=== PATIENT | female | born 1995 | race Caucasian/White ===

== ENCOUNTER 2016-05-28 11:39 | Observation (INO) | payer OTHER ==
[2016-05-28] VITALS (7 sets, daily range): BP systolic 120–136; BP diastolic 75–89
[~2016-05-28] VITALS: Ht 160 cm; Wt 116.9 kg
[~2016-05-28 11:39] MED LIST: PERCOCET1 TA1 PO; VICODIN EQUIVAL1 TAB PO
--- NOTE | 2016-05-28 14:14 | DIAGNOSTIC IMAGING REPORT ---
PROCEDURE: ABDOMEN/PELVIS WITH CONTRAST CLINICAL INDICATION: ABDOMINAL PAIN TECHNIQUE: 125 ml of Isovue 300 were injected intravenously and axial images were obtained of the abdomen and pelvis with sagittal and coronal reformations. COMPARISON: 03/15/2015 FINDINGS: ABDOMEN: Hepatomegaly and hepatic steatosis and mild splenomegaly measuring 13.9 cm in AP diameter. Clear lung bases. Normal sized heart. No hiatal hernia. The gallbladder, adrenal glands, kidneys, and pancreas are normal. The abdominal aorta is normal in its course and caliber. No atherosclerosis. There are no suspicious calcifications, retroperitoneal adenopathy or masses. The stomach, upper bowel loops, and mesentery are normal. Nonenlarged lymph nodes throughout the mesentery. Intact anterior abdominal wall. PELVIS: Enlarged and hyperemic appendix directed medially from the cecum measuring about 11 mm in thickness with moderate periappendiceal inflammation. Mild diffuse inflammation along the anterior peritoneum in the pelvis. No free pelvic fluid or focal fluid collections. The right ovary contains a dominant follicle. Interval resolution of inflammation along the anterior abdominal wall seen previously. The pelvic small bowel loops are normal. Normal amount of stool in the colon and rectum. The uterus, urinary bladder, and pelvic vessels are normal. No adenopathy, or pelvic mass. Intact osseous structures. IMPRESSION: 1. Findings consistent with acute, uncomplicated appendicitis. 2. Hepatosplenomegaly and hepatic steatosis, chronic. 3. Findings called to the emergency room. All CT scans at this facility use dose modulation, iterative reconstruction, and/or weight-based dosing when appropriate to reduce radiation dose to as low as reasonably achievable.
--- NOTE | 2016-05-28 14:22 | ED CLINICAL REPORT ---
Clinical Report - Physicians/Mid Levels [facility] [address] [place] [address] 05/28/2016 11:39 Patient: ROXANNE CANADA Time Seen: 11:46; initial patient contact. Arrived- By private vehicle. Historian- patient. HISTORY OF PRESENT ILLNESS Chief Complaint: ABDOMINAL PAIN. At its maximum, severity described as moderate. When seen in the E.D., severity described as moderate. Modifying factors- worsened by deep breaths. Not relieved by anything. It is described as stabbing. No radiation. It is described as located in the right lower quadrant. This started last night and is still present. It was gradual in onset and has been constant. The patient has had nausea, loss of appetite, vomiting and diarrhea. Similar symptoms previously: None. Recent medical care: Not recently seen/assessed. REVIEW OF SYSTEMS No constipation, difficulty with urination or fever. Last bowel movement: today. She has had chills. All systems otherwise negative, except as recorded above. PAST HISTORY Medications: None. Allergies: No Known Drug Allergy. SOCIAL HISTORY Current every day smoker. No alcohol use or drug use. ADDITIONAL NOTES The nursing notes have been reviewed with agreement regarding the chief complaint, PMH and patient medications and allergies. PHYSICAL EXAM Vital Signs: 05/28/2016 11:45 BP: 130/76. HR: 124. RR: 18. O2 saturation: 97%. Temp: 98.2 F. Pain level now: 8/10. Have been reviewed. Blood pressure normal. Tachycardic. Respiratory rate normal. Temperature normal. Oxygen saturation normal. Appearance: Alert. Oriented X3. Appears to be in pain. Eyes: Eyes normal inspection. ENT: Dry mucous membranes present. CVS: Tachycardia. Heart sounds normal. Rhythm normal. Respiratory: No respiratory distress. Breath sounds normal. Abdomen: Soft. Moderate tenderness in the right lower quadrant with guarding present. Positive obturator and psoas sign (+ Rovsing's sign). Bowel sounds normal. No organomegaly. No mass. Back: Normal inspection. No CVA tenderness. Skin: Normal skin color. Extremities: No lower extremity edema. Neuro: Oriented X 3. LABS, X-RAYS, AND EKG Abdominal CT: Acute appendicitis. Study type: abdomen and pelvis. Abdominal CT performed with IV contrast. The study was independently viewed by me, interpreted by the radiologist and discussed with the radiologist. Prior studies were not available for comparison. Interpretation time: 14:22. Laboratory Tests: UA-Culture if indicated: (JAYMIE: 05/28/2016 11:57) [facility] 12[facility]20) Final results Test Result Flag Units (Reference) URINE COLOR YELLOW URINE APPEARANCE SL CLOUDY URINE GLUCOSE NEGATIVE (NEGATIVE) URINE BILIRUBIN NEGATIVE (NEGATIVE) URINE KETONE NEGATIVE (NEGATIVE) URINE SPECIFIC GRAVITY 1.025 (1.010-1.030) URINE PH 6.0 (5.0-8.0) URINE PROTEIN NEGATIVE (NEGATIVE) URINE UROBILINOGEN 0.2 EU/dL (0.2-1.0) URINE NITRITE NEGATIVE (NEGATIVE) URINE BLOOD NEGATIVE (NEGATIVE) URINE LEUK ESTERASE NEGATIVE (NEGATIVE) URINE RBC NONE SEEN rbc/hpf (0-1) URINE WBC 0-1 wbc/hpf (0-1) URINE EPITHELIAL CELLS >15 EPI/hpf (0-5) URINE BACTERIA MODERATE (2+ TO 3+) (NONE SEEN) URINE COMMENT CULTURE INDICATED SPECIMEN UNSUITABLE FOR CULTURE DUE TO EPITHELIALCONTAMINATION.PLEASE SUBMIT CLEAN CATCH OR CATH SPECIMENIF CULTURE WANTED.URINE CULTURES ARE SET-UP BASED ON THE FOLLOWING CRITERIA:POSITIVE NITRITEPOSITIVE LEUKOCYTE ESTERASEGREATER THAN 10 WHITE BLOOD CELLSMODERATE (2+) OR GREATER BACTERIA Urine: (JAYMIE: 05/28/2016 11:57) ( [facility] 13:00) Final results Test Result Flag Units (Reference) URINE NEGATIVE CBC w Diff: (JAYMIE: 05/28/2016 12:38) ( [facility]28[facility]2016 12:58) Final results Test Result Flag Units (Reference) WHITE BLOOD COUNT 19.6 H K/uL (4.5-11.5) RED BLOOD COUNT 4.69 M/uL (4.00-5.20) HEMOGLOBIN 13.0 gm/dL (12.0-16.0) HEMATOCRIT 38.7 % (36.0-46.0) MEAN CELL VOLUME 83 fL (80-100) MEAN CORPUSCULAR HGB 28 pg (26-34) MEAN CORPUSCULAR HGB CONC 34 g/dL (31-37) RED CELL DISTRIBUTION WIDTH 13.4 % (11.6-14.8) PLATELET COUNT 287 K/uL (150-400) NEUTROPHIL % 88.5 H % (50-75) LYMPH % 9.0 L % (25-40) MONO % 2.0 L % (3-14) EOSINOPHIL % 0.4 % (0-4) BASOPHIL % 0.1 % (0-2) CMP: (JAYMIE: 05/28/2016 12:38) ( MsgRcvd 05/28/2016 13:10) Final results Test Result Flag Units (Reference) GLUCOSE 94 mg/dL (70-110) BUN 6 L mg/dL (7-18) CREATININE 0.7 mg/dL (0.6-1.3) Estimated GFR >60 mL/min Estimated GFR- >60 mL/min Note: Persistent reduction over 3 months in eGFR<60 mL/min/1.73 m2 defines CKD. Patients with eGFR values>=60 mL/min/1.73 m2 may also have CKD if evidence ofpersistent proteinuria. Additional information may be foundat [email or web address]. SODIUM 138 mmol/L (136-145) POTASSIUM 3.8 mmol/L (3.5-5.1) CHLORIDE 102 mmol/L (98-107) CARBON DIOXIDE 24 mmol/L (21-32) CALCIUM 8.7 mg/dL (8.5-10.1) TOTAL PROTEIN 7.9 g/dL (6.4-8.2) ALBUMIN 3.5 g/dL (3.3-5.0) BILIRUBIN, TOTAL 0.5 mg/dL (0.0-1.0) ALKALINE PHOSPHATASE 64 U/L (46-116) AST (SGOT) 23 U/L (15-37) ALT (SGPT) 37 U/L (12-78) LIPASE 77 U/L (73-393) AMYLASE 34 U/L (25-115) . PROGRESS AND PROCEDURES Discussed case with on-call health care provider, (call returned 14:20 Dr. Jimenez, due to insurance will have to admit to medicine and he will consult and take to surgery. Will start appy orders, but use Zosyn for Abx.). Reviewed test results and need for additional work-up. Discussed case with patient's primary care provider, (call returned 14:21 Dr. Bragg. Will admit and consult surgery.). Reviewed test results and need for additional work-up. Agreed upon treatment plan and decision to place in observation. Health care provider will see patient in hospital. Disposition: Observation in Acute Care. Condition: stable. CLINICAL IMPRESSION Acute appendicitis. No perforation. INSTRUCTIONS Follow-up: Screening today revealed the patient's blood pressure to be in the pre-hypertensive range. The patient should follow up with a primary care provider for blood pressure management. (Electronically signed by Estuardo Ibrahim Dr. 05/28/2016 14:23)
--- NOTE | 2016-05-28 14:22 | ED NURSING NOTES ---
Clinical Report - [facility] [address] [place] [address] 05/28/2016 11:39 [id number] Triage time 11:45. Chief Complaint: ABDOMINAL PAIN. 11:53 05/28/16. Alert. SEPSIS SCREEN: Sepsis Screen. Negative (no infection suspected/documented). MADELINE COMA SCORE: Madeline Coma Scale: 15- eyes open spontaneously (4); best verbal response- oriented x 4 (5); best motor response- obeys commands (6). --11:53 Macey Siddiqui R.N. 11:45 05/28/16. BP: 130/76. HR: 124. RR: 18. O2 saturation: 97%. Temp: 98.2 F. Pain level now: 10/16. --11:53 Macey Siddiqui R.N. 11:55 05/28/16. --11:55 Macey Siddiqui R.N. Weight: 113.3 kg stated. Height/Length: 63 inches Per Patient. BMI: 44.3. --11:50 Macey Siddiqui R.N. Medications None. --11:48 Macey Siddiqui R.N. Allergies No Known Drug Allergy. --11:48 Macey Siddiqui R.N. History Arrived by private vehicle. Historian: patient. Accompanied by friend. This started last night. ( pt states pain is on her right side and lower abdomen.). She has had diarrhea. ( chills). No nausea, vomiting or constipation. 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 PAST MEDICAL HX: Immunizations: up-to-date. Last normal menstrual period- Apr. Denies current . SOCIAL HX: Light tobacco smoker- less than 1/2 a pack per day. No alcohol use or drug use. FALL RISK ASSESSMENT: Fall risk assessment completed. No fall risk identified. NUTRITIONAL RISK ASSESSMENT: The nutritional risk assessment revealed no deficiencies. FUNCTIONAL ASSESSMENT: Functional assessment: no impairments noted. LEARNING NEEDS ASSESSMENT: The learning needs assessment revealed no barriers. SKIN INTEGRITY ASSESSMENT: Skin integrity risk assessment completed. No skin integrity risk identified. --11:53 Macey Siddiqui R.N. ( pt states "it stings when I wipe"). --11:55 Macey Siddiqui R.N. Interventions ID band on patient. To treatment room. --11:53 Macey Siddiqui R.N. PHYSICAL ASSESSMENT 11:55 05/28/16. GENERAL / NEURO / PSYCH: Alert. Oriented X 4. Appears in pain. RESPIRATORY: Respirations not labored. CVS: Capillary refill less than 2 seconds. GI / : Abdomen soft. Abdominal tenderness in the right upper quadrant, right lower quadrant and left lower quadrant. Bowel sounds within normal limits. SKIN: Skin is warm and dry. --11:55 Macey Siddiqui R.N. NURSING PROGRESS NOTES <<STRICKEN ENTRY-- 12:44 05/28/2016 Site #1 started via IV in the left hand with an 22g angiocath; four attempts. Blood drawn: rainbow set. Labeled in the presence of the patient and sent to the lab. Saline lock flushed with saline (2 attempts by anna RN, 3 attempts by CARLOS A Hillman). --12:44 Macey Siddiqui R.N. --END STRIKE>> Correction. --12:55 Macey Siddiqui R.N. 12:44 05/28/2016 Started bag #1 1000 mL IV Fluids IV NS (Saline); bolus of 1000 mL wide open via site #1. Allergies verified and confirmed 5 rights. IV patency established. IV site checked: no pain, redness, or swelling. IV flushed thoroughly pre- and post-medication administration. --12:44 Macey Siddiqui R.N. 12:44 05/28/2016 Site #1 started via IV in the left hand with an 22g angiocath; three attempts. Blood drawn: rainbow set. Labeled in the presence of the patient and sent to the lab. Saline lock flushed with saline (2 attempts by anna RN, 1 attempts by CARLOS A Hillman). --12:55 Macey Siddiqui R.N. 12:45 05/28/2016 Zofran (Ondansetron HCl) IVP 4 mg given over 2 minute(s) via site #1. Allergies verified and confirmed 5 rights. IV patency established. IV site checked: no pain, redness, or swelling. IV flushed thoroughly pre- and post-medication administration. IVP given by RN. --12:48 Macey Siddiqui R.N. 12:49 05/28/2016 Morphine IVP 4 mg given over 2 minute(s) via site #1. Allergies verified, confirmed 5 rights and sedative warning given to the patient. IV patency established. IV site checked: no pain, redness, or swelling. IV flushed thoroughly pre- and post-medication administration. IVP given by RN. --12:49 Macey Siddiqui R.N. 12:55 05/28/16. --12:55 Macey Siddiqui R.N. 12:55 05/28/16. Patient informed about reason for wait and about plan of care. --12:55 Macey Siddiqui R.N. 13:44 05/28/16. Patient transported to [place] by stretcher with tech. --13:44 Macey Siddiqui R.N. 14:05 05/28/16. --14:05 Rafy Mcallister R.N. 14:05 05/28/16. BP: 122/74. HR: 116. RR: 18. O2 saturation: 99% on room air. --14:05 Rafy Mcallister R.N. Patient returned from CT by stretcher with tech. (1400). --14:05 Rafy Mcallister R.N. 15:33 05/28/16. BP: 119/73. HR: 118. RR: 16. O2 saturation: 97%. Temp: 98.5 F. Pain level now: 09/15. --15:33 Macey Siddiqui R.N. <<YAELKEN ENTRY-- 13:00 05/28/2016 IV Fluids IV NS Discontinued: bag #1 completed. Total amount infused: 1000 mL. IV patency established. IV site checked: no pain, redness, or swelling. IV flushed thoroughly. --16:23 Macey Siddiqui R.N. --END STRIKE>> Correction. --16:23 Macey Siddiqui R.N. 13:45 05/28/2016 IV Fluids IV NS Discontinued: bag #1 completed. Total amount infused: 1000 mL. IV patency established. IV site checked: no pain, redness, or swelling. IV flushed thoroughly. --16:23 Macey Siddiqui R.N. 14:05 05/28/16. Pulse oximeter and NIBP monitor placed on patient; monitor alarms on. Reassurance given. --14:05 Rafy Mcallister R.N. 14:40 05/28/16. ( Patient given oral swab for dry mouth. Patient verbalized understanding that she is not to drink water.). --14:40 Macey Siddiqui R.N. 14:42 05/28/2016 Morphine IVP 4 mg given over 2 minute(s) via site #1. 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 IV patency established. IV site checked: no pain, redness, or swelling. IV flushed thoroughly pre- and post-medication administration. IVP given by RN. --14:42 Macey Siddiqui R.N. 14:45 05/28/2016 Started bag #1 1000 mL IV Fluids IV LACTATED RINGERS; at 125 mL/hr over 7 hour(s) via site #1. Allergies verified and confirmed 5 rights. IV patency established. IV site checked: no pain, redness, or swelling. IV flushed thoroughly pre- and post-medication administration. Completed per protocol. --14:45 Macey Siddiqui R.N. 15:00 05/28/2016 Started 3.375 gm of Zosyn (Piperacillin Sod-Tazobactam So) IVPB in bag #1 50 mL; at 50 mL/hr over 30 minute(s) via site #1; Allergies verified and confirmed 5 rights. IV patency established. IV site checked: no pain, redness, or swelling. IV flushed thoroughly pre- and post-medication administration. Completed per protocol. --16:26 Macey Siddiqui R.N. 15:01 05/28/2016 Zosyn IVPB Discontinued: STOPPED. Total amount infused: 0 mL. IV patency established. IV site checked: no pain, redness, or swelling. IV flushed thoroughly. (this is a double entry. Zosyn given ONLY at 15:11.). --16:28 Macey Siddiqui R.N. 15:11 05/28/2016 Started 3.375 gm of Zosyn (Piperacillin Sod-Tazobactam So) IVPB in bag #1 50 mL; at 100 mL/hr over 30 minute(s) via site #1; Allergies verified and confirmed 5 rights. IV patency established. IV site checked: no pain, redness, or swelling. IV flushed thoroughly pre- and post-medication administration. Completed per protocol. --15:11 Macey Siddiqui R.N. 15:31 05/28/2016 Zosyn IVPB Discontinued: bag #1 infused upon admission. Total amount infused: 50 mL. IV patency established. IV site checked: no pain, redness, or swelling. IV flushed thoroughly. --16:29 Macey Siddiqui R.N. 15:33 05/28/16. Patient informed about reason for wait and about plan of care. --15:33 Macey Siddiqui R.N. 16:09 05/28/2016 IV Fluids IV LACTATED RINGERS Discontinued: bag #1 STOPPED upon admission. Total amount infused: 150 mL. IV patency established. IV site checked: no pain, redness, or swelling. IV flushed thoroughly. --16:24 Macey Siddiqui R.N. DISPOSITION / DISCHARGE 16:19 05/28/16. Admitted via Surgery (16:15). Transported via stretcher by [employer]. Patient's personal items include: shirt and coat; items were given to the computed tomography scanner operator and transported with the patient. --16:19 Macey Siddiqui R.N. 15:33 05/28/16. BP: 119/73. HR: 118. RR: 16. O2 saturation: 97%. Temp: 98.5 F. Pain level now: 09/15. --16:19 Macey Siddiqui R.N. Locked/Released at 05/28/2016 17:08 by Macey Siddiqui R.N.
--- NOTE | 2016-05-28 14:22 | ED NURSING NOTES ---
Clinical Report - Nurses [facility] [address] [place] [address] 05/28/2016 11:39 [id number] Triage time 11:45. Chief Complaint: ABDOMINAL PAIN. 11:53 05/28/16. Alert. SEPSIS SCREEN: Sepsis Screen. Negative (no infection suspected/documented). MADELINE COMA SCORE: Madeline Coma Scale: 15- eyes open spontaneously (4); best verbal response- oriented x 4 (5); best motor response- obeys commands (6). --11:53 Macey Siddiqui R.N. 11:45 05/28/16. BP: 130/76. HR: 124. RR: 18. O2 saturation: 97%. Temp: 98.2 F. Pain level now: 10/16. --11:53 Macey Siddiqui R.N. 11:55 05/28/16. --11:55 Macey Siddiqui R.N. Weight: 113.3 kg stated. Height/Length: 63 inches Per Patient. BMI: 44.3. --11:50 Macey Siddiqui R.N. Medications None. --11:48 Macey Siddiqui R.N. Allergies No Known Drug Allergy. --11:48 Macey Siddiqui R.N. History Arrived by private vehicle. Historian: patient. Accompanied by friend. This started last night. ( pt states pain is on her right side and lower abdomen.). She has had diarrhea. ( chills). No nausea, vomiting or constipation. Treatment SUPERVISORY IT SPECIALIST: None. PAST MEDICAL HX: Immunizations: up-to-date. Last normal menstrual period- Apr. Denies current . SOCIAL HX: Light tobacco smoker- less than 1/2 a pack per day. No alcohol use or drug use. FALL RISK ASSESSMENT: Fall risk assessment completed. No fall risk identified. NUTRITIONAL RISK ASSESSMENT: The nutritional risk assessment revealed no deficiencies. FUNCTIONAL ASSESSMENT: Functional assessment: no impairments noted. LEARNING NEEDS ASSESSMENT: The learning needs assessment revealed no barriers. SKIN INTEGRITY ASSESSMENT: Skin integrity risk assessment completed. No skin integrity risk identified. --11:53 Macey Siddiqui R.N. ( pt states "it stings when I wipe"). --11:55 Macey Siddiqui R.N. Interventions ID band on patient. To treatment room. --11:53 Macey Siddiqui R.N. PHYSICAL ASSESSMENT 11:55 05/28/16. GENERAL / NEURO / PSYCH: Alert. Oriented X 4. Appears in pain. RESPIRATORY: Respirations not labored. CVS: Capillary refill less than 2 seconds. GI / : Abdomen soft. Abdominal tenderness in the right upper quadrant, right lower quadrant and left lower quadrant. Bowel sounds within normal limits. SKIN: Skin is warm and dry. --11:55 Macey Siddiqui R.N. NURSING PROGRESS NOTES <<STRICKEN ENTRY-- 12:44 05/28/2016 Site #1 started via IV in the left hand with an 22g angiocath; four attempts. Blood drawn: rainbow set. Labeled in the presence of the patient and sent to the lab. Saline lock flushed with saline (2 attempts by anna RN, 3 attempts by CARLOS A Hillman). --12:44 Macey Siddiqui R.N. --END STRIKE>> Correction. --12:55 Macey Siddiqui R.N. 12:44 05/28/2016 Started bag #1 1000 mL IV Fluids IV NS (Saline); bolus of 1000 mL wide open via site #1. Allergies verified and confirmed 5 rights. IV patency established. IV site checked: no pain, redness, or swelling. IV flushed thoroughly pre- and post-medication administration. --12:44 Macey Siddiqui R.N. 12:44 05/28/2016 Site #1 started via IV in the left hand with an 22g angiocath; three attempts. Blood drawn: rainbow set. Labeled in the presence of the patient and sent to the lab. Saline lock flushed with saline (2 attempts by anna RN, 1 attempts by CARLOS A Hillman). --12:55 Macey Siddiqui R.N. 12:45 05/28/2016 Zofran (Ondansetron HCl) IVP 4 mg given over 2 minute(s) via site #1. Allergies verified and confirmed 5 rights. IV patency established. IV site checked: no pain, redness, or swelling. IV flushed thoroughly pre- and post-medication administration. IVP given by RN. --12:48 Macey Siddiqui R.N. 12:49 05/28/2016 Morphine IVP 4 mg given over 2 minute(s) via site #1. Allergies verified, confirmed 5 rights and sedative warning given to the patient. IV patency established. IV site checked: no pain, redness, or swelling. IV flushed thoroughly pre- and post-medication administration. IVP given by RN. --12:49 Macey Siddiqui R.N. 12:55 05/28/16. --12:55 Macey Siddiqui R.N. 12:55 05/28/16. Patient informed about reason for wait and about plan of care. --12:55 Macey Siddiqui R.N. 13:44 05/28/16. Patient transported to [place] by stretcher with tech. --13:44 Macey Siddiqui R.N. 14:05 05/28/16. --14:05 Rafy Mcallister R.N. 14:05 05/28/16. BP: 122/74. HR: 116. RR: 18. O2 saturation: 99% on room air. --14:05 Rafy Mcallister R.N. Patient returned from CT by stretcher with tech. (1400). --14:05 Rafy Mcallister R.N. 15:33 05/28/16. BP: 119/73. HR: 118. RR: 16. O2 saturation: 97%. Temp: 98.5 F. Pain level now: 09/15. --15:33 Macey Siddiqui R.N. <<YAELKEN ENTRY-- 13:00 05/28/2016 IV Fluids IV NS Discontinued: bag #1 completed. Total amount infused: 1000 mL. IV patency established. IV site checked: no pain, redness, or swelling. IV flushed thoroughly. --16:23 Macey Siddiqui R.N. --END STRIKE>> Correction. --16:23 Macey Siddiqui R.N. 13:45 05/28/2016 IV Fluids IV NS Discontinued: bag #1 completed. Total amount infused: 1000 mL. IV patency established. IV site checked: no pain, redness, or swelling. IV flushed thoroughly. --16:23 Macey Siddiqui R.N. 14:05 05/28/16. Pulse oximeter and NIBP monitor placed on patient; monitor alarms on. Reassurance given. --14:05 Rafy Mcallister R.N. 14:40 05/28/16. ( Patient given oral swab for dry mouth. Patient verbalized understanding that she is not to drink water.). --14:40 Macey Siddiqui R.N. 14:42 05/28/2016 Morphine IVP 4 mg given over 2 minute(s) via site #1. Allergies verified, confirmed 5 rights and sedative warning given to the patient and patient's assistant dean. IV patency established. IV site checked: no pain, redness, or swelling. IV flushed thoroughly pre- and post-medication administration. IVP given by RN. --14:42 Macey Siddiqui R.N. 14:45 05/28/2016 Started bag #1 1000 mL IV Fluids IV LACTATED RINGERS; at 125 mL/hr over 7 hour(s) via site #1. Allergies verified and confirmed 5 rights. IV patency established. IV site checked: no pain, redness, or swelling. IV flushed thoroughly pre- and post-medication administration. Completed per protocol. --14:45 Macey Siddiqui R.N. 15:00 05/28/2016 Started 3.375 gm of Zosyn (Piperacillin Sod-Tazobactam So) IVPB in bag #1 50 mL; at 50 mL/hr over 30 minute(s) via site #1; Allergies verified and confirmed 5 rights. IV patency established. IV site checked: no pain, redness, or swelling. IV flushed thoroughly pre- and post-medication administration. Completed per protocol. --16:26 Macey Siddiqui R.N. 15:01 05/28/2016 Zosyn IVPB Discontinued: STOPPED. Total amount infused: 0 mL. IV patency established. IV site checked: no pain, redness, or swelling. IV flushed thoroughly. (this is a double entry. Zosyn given ONLY at 15:11.). --16:28 Macey Siddiqui R.N. 15:11 05/28/2016 Started 3.375 gm of Zosyn (Piperacillin Sod-Tazobactam So) IVPB in bag #1 50 mL; at 100 mL/hr over 30 minute(s) via site #1; Allergies verified and confirmed 5 rights. IV patency established. IV site checked: no pain, redness, or swelling. IV flushed thoroughly pre- and post-medication administration. Completed per protocol. --15:11 Macey Siddiqui R.N. 15:31 05/28/2016 Zosyn IVPB Discontinued: bag #1 infused upon admission. Total amount infused: 50 mL. IV patency established. IV site checked: no pain, redness, or swelling. IV flushed thoroughly. --16:29 Macey Siddiqui R.N. 15:33 05/28/16. Patient informed about reason for wait and about plan of care. --15:33 Macey Siddiqui R.N. 16:09 05/28/2016 IV Fluids IV LACTATED RINGERS Discontinued: bag #1 STOPPED upon admission. Total amount infused: 150 mL. IV patency established. IV site checked: no pain, redness, or swelling. IV flushed thoroughly. --16:24 Macey Siddiqui R.N. DISPOSITION / DISCHARGE 16:19 05/28/16. Admitted via Surgery (16:15). Transported via stretcher by [employer]. Patient's personal items include: shirt and coat; items were given to the assistant dean and transported with the patient. --16:19 Macey Siddiqui R.N. 15:33 05/28/16. BP: 119/73. HR: 118. RR: 16. O2 saturation: 97%. Temp: 98.5 F. Pain level now: 09/15. --16:19 Macey Siddiqui R.N. Locked/Released at 05/28/2016 17:08 by Macey Siddiqui R.N.
--- NOTE | 2016-05-28 14:22 | ED ORDER SUMMARY ---
..... Patient: ROXANNE CANADA OrderSheet [facility] VisitID: [id number] [place] [address] 21y, F Registration Date/Time: 05/28/2016 ORDER SHEET Weight: 113.3 kg (stated) Allergies: No Known Drug Allergy GENERAL ORDERS: UA-Culture if indicated Urgent (11:46 05/28/2016 RMarsden R.N. per protocol) (12:00 KHoerner) Urine Urgent (11:58 05/28/2016 RMarsden R.N. per protocol) (12:00 KHoerner) CBC w Diff Urgent (12:08 05/28/2016 Priya Patton) (Ack 12:22 PHILIPoerner) (13:03 JBoardley R.N.) CMP Urgent (12:08 05/28/2016 Priya Patton) (Ack 12:22 Addy) (13:03 JBoardley R.N.) Amylase Urgent (12:08 05/28/2016 Priya Patton) (Ack 12:22 PHILIPoesaraner) (13:03 JBpatriadley R.N.) Lipase Urgent (12:08 05/28/2016 Priya Patton) (Ack 12:22 PHILIPoerner) (13:03 JBoardley R.N.) NPO (12:08 05/28/2016 Priya Patton) (Ack 12:22 Addy) (13:03 JBoardley R.N.) CT Abd/Pel w Cont (No) (6/0.7) Urgent (13:35 05/28/2016 Priya Patton) (Ack 13:36 PHILIPoecarter) (13:44 RMarsden R.N.) MEDICATION ORDERS: IV FLUIDS: IV NS : initial bolus none -, then 1000 mL/hr for X1 (NOW) (12:06 05/28/2016 Priya Patton) (Ack 12:42 RMarsden R.N.) (12:44 RMarsden R.N.) Zofran IV 4 mg (NOW) (12:07 05/28/2016 Priya Patton) (Ack 12:42 RMarsden R.N.) (12:48 RMarsden R.N.) Morphine IV 4 mg (HIGH ALERT MEDICATION, NOW) (12:07 05/28/2016 Priya Ptaton) (Ack 12:42 RMarsden R.N.) (12:49 RMarsden R.N.) Morphine IV 4 mg (HIGH ALERT MEDICATION, NOW) (14:18 05/28/2016 Priya Patton) (Ack 14:23 RMarsden R.N.) (14:42 RMarsden R.N.) Zosyn IV 3.375 gm/50mL (NOW) (14:19 05/28/2016 Priya Patton) (Ack 14:23 RMarsden R.N.) (15:11 RMarsden R.N.) IV Lactated Ringers : initial bolus none -, then 125 mL/hr (NOW) (14:44 05/28/2016 Stacieden R.N. written order Priya Patton) (14:45 RMarsden R.N.) ORDER SHEET NOTES: [Electronically signed by Estuardo Ibrahim Dr. (14:23 05/28/2016)] [Electronically signed by Macey Siddiqui R.N. (17:08 05/28/2016)] [Electronically locked/signed by Macey Siddiqui R.N. (17:08 05/28/2016)]
--- NOTE | 2016-05-28 14:22 | ED ORDER SUMMARY ---
..... Patient: ROXANNE CANADA OrderSheet [facility] VisitID: [id number] [place] [address] 21y, F Registration Date/Time: 05/28/2016 ORDER SHEET Weight: 113.3 kg (stated) Allergies: No Known Drug Allergy GENERAL ORDERS: UA-Culture if indicated Urgent (11:46 05/28/2016 RMarsden R.N. per protocol) (12:00 KHoerner) Urine Urgent (11:58 05/28/2016 RMarsden R.N. per protocol) (12:00 KHoerner) CBC w Diff Urgent (12:08 05/28/2016 Priya Patton) (Ack 12:22 PHILIPoerner) (13:03 JBoardley R.N.) CMP Urgent (12:08 05/28/2016 Priya Patton) (Ack 12:22 Addy) (13:03 JBoardley R.N.) Amylase Urgent (12:08 05/28/2016 Priya Patton) (Ack 12:22 PHILIPoesaraner) (13:03 JBpatriadley R.N.) Lipase Urgent (12:08 05/28/2016 Priya Patton) (Ack 12:22 PHILIPoerner) (13:03 JBoardley R.N.) NPO (12:08 05/28/2016 Priya Patton) (Ack 12:22 Addy) (13:03 JBoardley R.N.) CT Abd/Pel w Cont (No) (6/0.7) Urgent (13:35 05/28/2016 Priya Patton) (Ack 13:36 PHILIPoecarter) (13:44 RMarsden R.N.) MEDICATION ORDERS: IV FLUIDS: IV NS : initial bolus none -, then 1000 mL/hr for X1 (NOW) (12:06 05/28/2016 Priya Patton) (Ack 12:42 RMarsden R.N.) (12:44 RMarsden R.N.) Zofran IV 4 mg (NOW) (12:07 05/28/2016 Priya Patton) (Ack 12:42 RMarsden R.N.) (12:48 RMarsden R.N.) Morphine IV 4 mg (HIGH ALERT MEDICATION, NOW) (12:07 05/28/2016 Priya Patton) (Ack 12:42 RMarsden R.N.) (12:49 RMarsden R.N.) Morphine IV 4 mg (HIGH ALERT MEDICATION, NOW) (14:18 05/28/2016 Priya Patton) (Ack 14:23 RMarsden R.N.) (14:42 RMarsden R.N.) Zosyn IV 3.375 gm/50mL (NOW) (14:19 05/28/2016 Priya Patton) (Ack 14:23 RMarsden R.N.) (15:11 RMarsden R.N.) IV Lactated Ringers : initial bolus none -, then 125 mL/hr (NOW) (14:44 05/28/2016 Stacieden R.N. written order Priya Patton) (14:45 RMarsden R.N.) ORDER SHEET NOTES: [Electronically signed by Estuardo Ibrahim Dr. (14:23 05/28/2016)] [Electronically signed by Macey Siddiqui R.N. (17:08 05/28/2016)] [Electronically locked/signed by Macey Siddiqui R.N. (17:08 05/28/2016)]
--- NOTE | 2016-05-28 17:09 | ED MAR SUMMARY ---
..... Medication Administration Record [facility] [address] [place] [address] Patient: ROXANNE CANADA Visit ID: [id number] 21y, F Weight: 113.3 kg Height/Length: 63 in BMI: 44.3 ALLERGIES: No Known Drug Allergy Start 12:44 05/28/2016 Macey Siddiqui R.N., Stop 13:45 05/28/2016 Macey Siddiqui R.N. Medication Administered: IV NS (SALINE), Dose: IV Fluids, Bolus: 1000 mL wide open, Dispensed: 1000 mL bag, Site: #1 left hand. Medication Ordered: IV NS : initial bolus none -, then 1000 mL/hr for X1 (NOW). Given 12:45 05/28/2016 Macey Siddiqui R.N. Medication Administered: ZOFRAN [IVP] (ONDANSETRON HCL), Dose: 4 mg IVP over 2 minute(s), Site: #1 left hand. Medication Ordered: Zofran IV 4 mg (NOW). Given 12:49 05/28/2016 Macey Siddiqui R.N. Medication Administered: MORPHINE [IVP], Dose: 4 mg IVP over 2 minute(s), Site: #1 left hand. Medication Ordered: Morphine IV 4 mg (HIGH ALERT MEDICATION, NOW). Given 14:42 05/28/2016 Macey Siddiqui R.N. Medication Administered: MORPHINE [IVP], Dose: 4 mg IVP over 2 minute(s), Site: #1 left hand. Medication Ordered: Morphine IV 4 mg (HIGH ALERT MEDICATION, NOW). Start 14:45 05/28/2016 Macey Siddiqui R.N., Stop 16:09 05/28/2016 Macey Siddiqui R.N. Medication Administered: IV LACTATED RINGERS, Dose: IV Fluids over 7 hour(s), Rate: 125 mL/hr, Dispensed: 1000 mL bag, Site: #1 left hand. Medication Ordered: IV Lactated Ringers : initial bolus none -, then 125 mL/hr (NOW). Start 15:00 05/28/2016 Macey Siddiqui R.N., Stop 15:01 05/28/2016 Macey Siddiqui RWenceslaoN. Medication Administered: ZOSYN [IVPB] (PIPERACILLIN SOD-TAZOBACTAM SO), Dose: 3.375 gm IVPB over 30 minute(s), Rate: 50 mL/hr, Dispensed: 50 mL bag, Site: #1 left hand. Medication Ordered: Zosyn IV 3.375 gm/50mL (NOW). Start 15:11 05/28/2016 Macey Siddiqui R.N., Stop 15:31 05/28/2016 Macey Siddiqui R.N. Medication Administered: ZOSYN [IVPB] (PIPERACILLIN SOD-TAZOBACTAM SO), Dose: 3.375 gm IVPB over 30 minute(s), Rate: 100 mL/hr, Dispensed: 50 mL bag, Site: #1 left hand. Medication Ordered: Zosyn IV 3.375 gm/50mL (NOW).
--- NOTE | 2016-05-28 17:09 | ED DISCHARGE INSTRUCTIONS ---
Patient: ROXANNE CANADA General Instructions [facility] VisitID: [id number] [place] [address] 21y, F Registration Date/Time: 05/28/2016 Acute appendicitis. No perforation. INSTRUCTIONS Follow-up: Screening today revealed the patient's blood pressure to be in the pre-hypertensive range. The patient should follow up with a primary care provider for blood pressure management. (Electronically signed by Estuardo Ibrahim Dr. 05/28/2016 14:23)
--- NOTE | 2016-05-28 17:09 | ED MED RECONCILIATION SUMMARY ---
Patient: ROXANNE CANADA Medication Reconciliation Report [facility] VisitID: [id number] [place] [address] 21y, F Registration Date/Time: 05/28/2016 Weight: 113.3 kg Height/Length: 63 in. BMI: 44.3 ALLERGIES: No Known Drug Allergy The patient's Home Medications are listed below: NONE. The source(s) of the original Home Medication information: Not obtained. The following Medications were given to the patient in the Emergency Department: IV NS IV Fluids bolus 1000 mL wide open, administered: 05/28/2016 12:44:00 PM Zofran [IVP] IVP 4 mg, administered: 05/28/2016 12:45:00 PM Morphine [IVP] IVP 4 mg, administered: 05/28/2016 12:49:00 PM Morphine [IVP] IVP 4 mg, administered: 05/28/2016 2:42:00 PM IV LACTATED RINGERS IV Fluids bolus 0, then 125 mL/hr, administered: 05/28/2016 2:45:00 PM Zosyn [IVPB] IVPB bolus 0, then 3.375 gm 100 mL/hr, administered: 05/28/2016 3:11:00 PM Zosyn [IVPB] IVPB bolus 0, then 3.375 gm 50 mL/hr, administered: 05/28/2016 3:00:00 PM The following Medications were prescribed to the patient: None.
--- NOTE | 2016-05-28 17:09 | ED DISCHARGE INSTRUCTIONS ---
Patient: ROXANNE CANADA General Instructions [facility] VisitID: [id number] [place] [address] 21y, F Registration Date/Time: 05/28/2016 Acute appendicitis. No perforation. INSTRUCTIONS Follow-up: Screening today revealed the patient's blood pressure to be in the pre-hypertensive range. The patient should follow up with a primary care provider for blood pressure management. (Electronically signed by Estuardo Ibrahim Dr. 05/28/2016 14:23)
--- NOTE | 2016-05-28 17:09 | ED MAR SUMMARY ---
..... Medication Administration Record [facility] [address] [place] [address] Patient: ROXANNE CANADA Visit ID: [id number] 21y, F Weight: 113.3 kg Height/Length: 63 in BMI: 44.3 ALLERGIES: No Known Drug Allergy Start 12:44 05/28/2016 Macey Siddiqui R.N., Stop 13:45 05/28/2016 Macey Siddiqui R.N. Medication Administered: IV NS (SALINE), Dose: IV Fluids, Bolus: 1000 mL wide open, Dispensed: 1000 mL bag, Site: #1 left hand. Medication Ordered: IV NS : initial bolus none -, then 1000 mL/hr for X1 (NOW). Given 12:45 05/28/2016 Macey Siddiqui R.N. Medication Administered: ZOFRAN [IVP] (ONDANSETRON HCL), Dose: 4 mg IVP over 2 minute(s), Site: #1 left hand. Medication Ordered: Zofran IV 4 mg (NOW). Given 12:49 05/28/2016 Macey Siddiqui R.N. Medication Administered: MORPHINE [IVP], Dose: 4 mg IVP over 2 minute(s), Site: #1 left hand. Medication Ordered: Morphine IV 4 mg (HIGH ALERT MEDICATION, NOW). Given 14:42 05/28/2016 Macey Siddiqui R.N. Medication Administered: MORPHINE [IVP], Dose: 4 mg IVP over 2 minute(s), Site: #1 left hand. Medication Ordered: Morphine IV 4 mg (HIGH ALERT MEDICATION, NOW). Start 14:45 05/28/2016 Macey Siddiqui R.N., Stop 16:09 05/28/2016 Macey Siddiqui R.N. Medication Administered: IV LACTATED RINGERS, Dose: IV Fluids over 7 hour(s), Rate: 125 mL/hr, Dispensed: 1000 mL bag, Site: #1 left hand. Medication Ordered: IV Lactated Ringers : initial bolus none -, then 125 mL/hr (NOW). Start 15:00 05/28/2016 Macey Siddiqui R.N., Stop 15:01 05/28/2016 Macey Siddiqui RWenceslaoN. Medication Administered: ZOSYN [IVPB] (PIPERACILLIN SOD-TAZOBACTAM SO), Dose: 3.375 gm IVPB over 30 minute(s), Rate: 50 mL/hr, Dispensed: 50 mL bag, Site: #1 left hand. Medication Ordered: Zosyn IV 3.375 gm/50mL (NOW). Start 15:11 05/28/2016 Macey Siddiqui R.N., Stop 15:31 05/28/2016 Macey Siddiqui R.N. Medication Administered: ZOSYN [IVPB] (PIPERACILLIN SOD-TAZOBACTAM SO), Dose: 3.375 gm IVPB over 30 minute(s), Rate: 100 mL/hr, Dispensed: 50 mL bag, Site: #1 left hand. Medication Ordered: Zosyn IV 3.375 gm/50mL (NOW).
--- NOTE | 2016-05-28 17:09 | ED MED RECONCILIATION SUMMARY ---
Patient: ROXANNE CANADA Medication Reconciliation Report [facility] VisitID: [id number] [place] [address] 21y, F Registration Date/Time: 05/28/2016 Weight: 113.3 kg Height/Length: 63 in. BMI: 44.3 ALLERGIES: No Known Drug Allergy The patient's Home Medications are listed below: NONE. The source(s) of the original Home Medication information: Not obtained. The following Medications were given to the patient in the Emergency Department: IV NS IV Fluids bolus 1000 mL wide open, administered: 05/28/2016 12:44:00 PM Zofran [IVP] IVP 4 mg, administered: 05/28/2016 12:45:00 PM Morphine [IVP] IVP 4 mg, administered: 05/28/2016 12:49:00 PM Morphine [IVP] IVP 4 mg, administered: 05/28/2016 2:42:00 PM IV LACTATED RINGERS IV Fluids bolus 0, then 125 mL/hr, administered: 05/28/2016 2:45:00 PM Zosyn [IVPB] IVPB bolus 0, then 3.375 gm 100 mL/hr, administered: 05/28/2016 3:11:00 PM Zosyn [IVPB] IVPB bolus 0, then 3.375 gm 50 mL/hr, administered: 05/28/2016 3:00:00 PM The following Medications were prescribed to the patient: None.
[2016-05-28] MEDS ORDERED: NORCO1 TA1 PO (17:23)
--- NOTE | 2016-05-28 17:24 | Provider's Discharge Care Plan ---
Problem, Goal, Plan Problem List 1. Acute appendicitis
--- NOTE | 2016-05-28 17:24 | Provider's Discharge Care Plan ---
Problem, Goal, Plan Problem List 1. Acute appendicitis
--- NOTE | 2016-05-28 18:15 | NUR ---
PATIENT TO ROOM 201 FROM THE PACU ACCOMPANIED BY THE VALIDATION LEADER. PATIENT IS ALERT AND AWAKE. SCOOTED SELF TO BED. PAIN IS MINIMAL. COUPLE TROCHAR SITES PRESENT, C/D/I. DENIES NAUSEA.
--- NOTE | 2016-05-28 18:19 | NUR ---
INITIAL NOTE LOST, UNFILED. PATIENT COMBATIVE ON AWAKENING, SWINGING ARMS AND KICKING FEET, NONVERBAL. UNBLE TO PLACE FACE TENT OR KEEP NC IN POSITION. SAO2 HIGH 70"S, LOW 80'S WITH BLOW BY O2 PLACED CLOSEBY. ASSISTED TO REPOSION SELF IN BE TO IMPROVE RESP STATUE, SAO2 LOW TO MID 90'S, > 96% WITH O2/NC FOLLOWING AWAKENING, ALBUTEROL INHALER TREATMENT. STATED HAPPING MILD POSTOPERATIVE TIME AT TIME OF TRANSFER TO ROOM.TO CONTINUE O2 MONITORING ON FLOOR.TRANSFERRED SELF TO BED FROM STRETCHER ON RETURN TO ROOM, O2 AT 4L/NC.
--- NOTE | 2016-05-28 19:16 | CONSULTATION REPORT ---
DATE OF CONSULTATION: 05/28/2016 CHIEF COMPLAINT: 1. Abdominal pain HISTORY OF PRESENT ILLNESS: The patient is a 21-year-old woman who reports a 1- day history of right-sided abdominal pain. Her first symptom was a sharp pain when she moved on the right side that shot upward. This pain has since intensified. She reports she has had nausea, but no vomiting. She has had some diarrhea last night and some this morning. MEDICAL/SURGICAL HISTORY: Past medical history: Unremarkable. Past surgical history: 15 months ago. She is G1, P1. MEDICATIONS: 1. OCPs. ALLERGIES: 1. NONE TO MEDICATIONS. SOCIAL HISTORY: The patient is single and lives with a male significant other. 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 She smokes about 1/3 pack per day. She does not take alcohol. FAMILY HISTORY: Both her mother and father had nonrheumatoid arthritis. There is no other relevant family history that she can describe. REVIEW OF SYSTEMS: A multipoint review of systems was obtained. The patient describes the symptoms mentioned in the history of present illness. She reports no other symptoms such as hemoptysis or hematemesis. There has been no hematochezia, though she did have some loose stools. She reports no specific headaches, sinus problems, unexpected weight loss, head and neck complaints, thyroid problems, shortness of breath, palpitations, joint difficulties. PHYSICAL EXAMINATION: VITAL SIGNS: Blood pressure 130/76, heart rate of 124 on admission, respirations 18, O2 saturation 97%, temperature 98.2. The patient is 113.3 kg, 63 inches, BMI 44.3. GENERAL: The patient is alert and cooperative. She is mentally intact. She is oriented to time, place, and answers all questions appropriately. HEENT: Her ears and nose demonstrate no gross external lesions. Eyes are equal. She is anicteric. NECK: Without palpable masses or thyromegaly. There is no bruit in the neck. CHEST: Clear to auscultation without wheeze or rales. HEART: Regular, without murmur or gallop. ABDOMEN: Reveals localized tenderness in the right lower quadrant with localized involuntary guarding. There is also some discomfort with palpation high up in the left upper quadrant. EXTREMITIES: Symmetric. She previously moved without restriction. There are no surgical scars in the upper abdomen. LAB/IMAGING: Laboratory tests reveal an elevated white count of 19.6, hemoglobin and hematocrit of 13 and 38. Chemistries show normal electrolytes, BUN is 6, creatinine is 0.7. Liver enzymes are normal. Urinalysis is negative for red cells and white cells. test is negative. CT scan was reviewed and the report demonstrates acute appendicitis. Hepatosplenomegaly and steatosis were also noted with the spleen measuring about 13.9 cm in diameter. IMPRESSION: 1. Acute appendicitis. PLAN: I have recommended the patient undergo laparoscopic appendectomy. I talked to her and her boyfriend about the nature of this operation, as well as alternatives such as antibiotic therapy and open appendectomy. I discussed potential risks such as infection, bleeding, scars, pain, damage to local structures, alternative diagnoses, open surgery and others. They would like to proceed as described.
--- NOTE | 2016-05-28 19:41 | OPERATIVE REPORT ---
DATE OF SURGERY: 05/28/2016 SURGEON: Rory Granda MD PREOPERATIVE DIAGNOSIS: 1. Acute appendicitis POSTOPERATIVE DIAGNOSIS: 1. Acute suppurative appendicitis PROCEDURE PERFORMED: 1. Laparoscopic appendectomy ANESTHESIA: General. INDICATIONS: The patient is a 21-year-old woman with the 1-day history of abdominal pain and a CT scan indicating appendicitis. SURGICAL TECHNIQUE: The patient was taken to the operating room, where a general anesthetic was administered and patient prepped and draped in the usual sterile fashion. A local anesthetic of 0.5% Marcaine with epinephrine was used at each incision site. An intraumbilical incision was made and a Veress needle used to insufflate. A 10 mm trocar was passed. Visualization was obtained. There were some omental adhesions to the old scar, but these did not interfere with placement. Two additional trocars were placed in the lower midline. The patient was placed in Trendelenburg position and an acutely suppurative appendicitis was visualized. The mesoappendix was taken down using the Thunderbeat device and the base of the appendix isolated and clipped with 2 Hem-o-Ozzy clips. The specimen side was also clipped and the appendix divided. A small amount of bipolar current was applied to the exposed mucosa. The appendix was pulled up completely within the 10 mm umbilical trocar and removed. A small amount of local was irrigated and suctioned away and the area was found to be hemostatic. Gas was evacuated, and the skin was closed with interrupted subcuticular 4-0 Vicryl suture. Steri-Strips and dressings were applied and the patient left in good condition.
--- NOTE | 2016-05-28 20:18 | NUR ---
Patient just came back from OR s/p Lap Appy. Maintained on O2 at 2lpm as still drowsy. Complains of 4-5/10 abdo pain but is now able to pass ags and urine. Kept on Clear fluids for now.
--- NOTE | 2016-05-28 21:36 | HISTORY AND PHYSICAL ---
ADMITTED: 05/28/2016 CHIEF COMPLAINT: 1. Abdominal pain, nausea and diarrhea HISTORY OF PRESENT ILLNESS: This is a 21-year-old female presenting to the emergency department with 24 hours of abdominal pain, nausea, and diarrhea. The patient states she was feeling fine until the day prior to admission. Today, she has also had fever and chills. She denies any vomiting, hematemesis, melena. No dysuria, frequency or urgency. MEDICAL/SURGICAL HISTORY: Past medical history: Depression, anxiety. G1, P0, delivering via 02/22/2015. MEDICATIONS: 1. None. ALLERGIES: 1. FLUOXETINE. SOCIAL HISTORY: The patient is single. She has 1 child. She is unemployed. FAMILY HISTORY: Dad with COPD, who is smoker. He had a myocardial infarction in his 60s and a TIA in his 60s. Mom with cervical cancer and brother with autism. REVIEW OF SYSTEMS: A full 12-point review of systems was done; it was negative except as per HPI. PHYSICAL EXAMINATION: VITAL SIGNS: Stable. GENERAL: This is a well-appearing female lying in bed in no apparent distress. HEENT: Head is atraumatic, normocephalic. Pupils are equal, round, and reactive to light with accommodation bilaterally. Extraocular muscles are intact bilaterally. Oropharynx is nonerythematous without exudates. Trachea is midline. NECK: There is no JVD. HEART: S1, S2, regular rate and rhythm. No S3, S4, murmurs, gallops, or rubs. LUNGS: Clear to auscultation bilaterally. ABDOMEN: Soft, nondistended with mild diffuse tenderness. No peripheral edema. LAB/IMAGING: Laboratory: Sodium is 138, potassium is 3.8, chloride is 102, bicarbonate is 24, BUN of 6, creatinine 0.7, glucose of 94, calcium of 8.7. Total protein 7.9, albumin 3.5, total bilirubin of 0.5, alk phos of 64, AST of 23, ALT of 37, lipase of 77, amylase of 34. UA is negative, except for 2-3+ bacteria. White blood cell count of 19.6, hemoglobin of 13.0, hematocrit of 38.7, and platelets are 287,000. Urine test is negative. Imaging: CT scan of the abdomen shows an acute appendicitis, chronic hepatosplenomegaly and hepatic steatosis. IMPRESSION: 1. 21 Year old female with acute appendicitis. PLAN: 1. Surgery has been consulted for definitive management of the appendicitis. I expect patient to be discharged to home after surgery within 24 hours. 2. Prophylaxis: Sequential compression devices for deep venous thrombosis prophylaxis given the fact that patient will be likely having surgery. 3. CODE STATUS: FULL CODE.
--- NOTE | 2016-05-28 23:00 | NUR ---
Patient was able to tolerate walking around the recinos and confirm that pain has been minimal. Trochar sites intact. Patient has been voiding and has passed flatus. Will try to advance diet to clear soup and could go home if well tolerated.
--- NOTE | 2016-05-28 23:30 | NUR ---
Patient has tolerated soup and is pain free. Discharge instructions and packet given. She was accompanied by spouse and SALES AGENT FINANCIAL REPORT SERVICE.
== END 2016-05-29 00:30 | disposition home or self-care (01) ==
LOC: ED SRH 11:39 → TRANS SRH 14:22 → ACUTE2 SRH 16:20
PROVIDERS: Surgery; ADMIT Family Medicine
PROC: 0DTJ4ZZ Resection of Appendix, Percutaneous Endoscopic Approach (ICD-10-PCS; principal; 2016-05-28 15:30)
DX: K35.80 Unspecified acute appendicitis (principal); R11.2 Nausea with vomiting, unspecified
CPT/HCPCS: 29229; 29230; 50002; 60001; 70002; 80102; 80212; 80248; 82897; 83343; 83587; 83919; 83920; 83982; 84038; 90004; 90100; 92235; 92530; 93070; 95059

== ENCOUNTER 2016-06-30 09:35 | Emergency (ER) | payer OTHER ==
[~2016-06-30 09:35] MED LIST changes: +NORCO1 TA1 PO
--- NOTE | 2016-06-30 10:28 | DIAGNOSTIC IMAGING REPORT ---
PROCEDURE: XR ANKLE 3 OR 4 VIEWS - RIGHT INDICATION: TRAUMA/INJURY TECHNIQUE: Four views. COMPARISON: None. FINDINGS: Osseous structures and joint spaces are normal. IMPRESSION: 1. Normal right ankle.
--- NOTE | 2016-06-30 11:17 | ED CLINICAL REPORT ---
Clinical Report - Physicians/Mid Levels [facility] [address] [place] [place] [address] 06/30/2016 9:36 [id number] Time Seen: 10:03. Arrived- By private vehicle. Historian- patient. HISTORY OF PRESENT ILLNESS Chief Complaint: Injury to the right ankle. The injury happened just prior to arrival. The patient sustained an inversion injury while walking. Occurred at home. Patient is experiencing severe pain. No other injury. REVIEW OF SYSTEMS The patient complains of severe pain on weight bearing. She cannot bear weight. She has had new onset of swelling of the right ankle (mild). No chills, fever, sweats, calf pain or chest pain. No cough, difficulty breathing, pedal edema, palpitations or abdominal pain. No constipation, diarrhea, nausea, vomiting or urinary problems. All systems otherwise negative, except as recorded above. PAST HISTORY PCP - Yemi. SOCIAL HISTORY Current every day light tobacco smoker (cigarette)- less than 1/2 a pack per day. No alcohol use or drug use. FAMILY HISTORY No significant family medical history. ADDITIONAL NOTES The nursing notes have been reviewed. PHYSICAL EXAM Vital Signs: 06/30/2016 09:39 BP: 126/64. HR: 124. RR: 22. O2 saturation: 98%. Temp: 98.5 F. Pain level now: 5/10. Have been reviewed. Appearance: Alert. Head: Head atraumatic. Eyes: Pupils equal, round and reactive to light. ENT: Pharynx normal. Neck: Neck supple. Respiratory: Breath sounds normal. Abdomen: No visible injury. Back: Normal inspection. ROM normal. Skin: Skin intact. Skin warm and dry. Extremities: Right lateral ankle: moderate tenderness and mild swelling. Limited ROM secondary to pain (diminished dorsiflexion and eversion). Neurovascular intact distally. No ligamentous laxity present. No joint effusion. Extremities otherwise negative. Neuro, Vascular and Tendons: Sensation intact. Motor intact. Gait: Gait not tested due to pain. Neuro: No motor deficit. No sensory deficit. LABS, X-RAYS, AND EKG Rt Ankle X-ray: (IMPRESSION: 1. Normal right ankle.). The X-rays were interpreted by the radiologist and contemporaneously by me. PROGRESS AND PROCEDURES Splint Application: Stirrup velcro splint applied to right ankle. Splint applied by tech. Reassessed extremity following splint application. Neurovascular intact. Fitted for crutches by the tech. Patient/family counseled. Old medical records reviewed. Disposition: Discharged. Condition: stable. CLINICAL IMPRESSION Sprain of the calcaneofibular and talofibular ligament of the right ankle. INSTRUCTIONS Apply ice for 20 minutes four times a day until better. Don't apply ice directly to skin and don't use while asleep. Use crutches until released. Wear air splint until better. You may walk and bear weight as tolerated. Do not work today, tomorrow. Warnings: COMPLICATIONS: Complications from this condition include: possible injury to a tendon and possible injury to a ligament. Future problems may include loss of function and pain. It is important to follow up with a physician for further evaluation and treatment. GENERAL WARNINGS: Return or contact your physician immediately if your condition worsens or changes unexpectedly, if not improving as expected, or if other problems arise. Prescription Medications: Ibuprofen 600mg tablets: take 1 tablet orally every 8 hours as needed for pain. Dispense thirty (30). No refills. Understanding of the discharge instructions verbalized by patient and family. (Electronically signed by Joseph Ruiz MD 07/02/2016 2:50)
--- NOTE | 2016-06-30 11:17 | ED NURSING NOTES ---
Clinical Report - Nurses [facility] [address] [place] [address] 06/30/2016 9:36 Patient: ROXANNE CANADA TRIAGE Acuity: LEVEL 3. Chief Complaint: INJURY TO RIGHT ANKLE. Alert. No acute distress. SEPSIS SCREEN: Sepsis Screen. Negative (no infection suspected/documented). TAURUS COMA SCORE: Barnum Coma Scale: 15- eyes open spontaneously (4); best verbal response- oriented x 4 (5); best motor response- obeys commands (6). --09:44 Julieta White R.N. 09:39 06/30/16. BP: 126/64. HR: 124. RR: 22. O2 saturation: 98%. Temp: 98.5 F. Pain level now: 07/16. --09:44 Julieta White R.N. Weight: 113.3 kg stated. Height/Length: 64 inches Per Patient. BMI: 42.9. --09:40 Julieta White R.N. Medications None. --09:42 Julieta White R.N. Medication/allergy information source: the patient. --09:44 Julieta White R.N. Allergies PredniSONE. --09:42 Julieta White R.N. History Arrived by private vehicle. Historian: patient. Accompanied by family. Primary physician (Yemi). This occurred just prior to arrival. Occurred at home. Mechanism of injury: fell (pt reports she tripped going down stairs and twisted and fell on her ankle.). Treatment PRINT ROOM WORKER: None. PAST MEDICAL HX: Last normal menstrual period- May 23 2016. SOCIAL HX: Current every day light tobacco smoker (cigarette)- less than 1/2 a pack per day. No alcohol use or drug use. FALL RISK ASSESSMENT: Fall risk assessment completed. No fall risk identified. NUTRITIONAL RISK ASSESSMENT: The nutritional risk assessment revealed no deficiencies. FUNCTIONAL ASSESSMENT: Functional assessment: no impairments noted. LEARNING NEEDS ASSESSMENT: The learning needs assessment revealed no barriers. SKIN INTEGRITY ASSESSMENT: Skin integrity risk assessment completed. No skin integrity risk identified. --09:44 Julieta White R.N. PROBLEMS: Appendicitis. Abscess. Asthma. . Hypertension. Myofascial Strain. LNMP - Last Normal Menstrual Period. --:42 Julieta White R.N. Gastroenteritis [RuleOut]. --09:42 Julieta White R.N. ADDITIONAL SURGERIES: Appendectomy. . --:42 Julieta White R.N. Assessment GENERAL / NEURO / PSYCH: Alert. Oriented X 4. Appears in no acute distress. Barnum Coma Scale: 15- eyes open spontaneously (4); best verbal response- oriented x 4 (5); best motor response- obeys commands (6). Patient appears calm and cooperative. RESPIRATORY: Respirations not labored. CVS: Capillary refill less than 2 seconds. GI / : Abdomen soft and nontender. SKIN: Mucous membranes are pink. Skin is warm and dry. --09:44 Julieta White R.N. Interventions ID band on patient. To treatment room. --09:44 Julieta White R.N. PHYSICAL ASSESSMENT 09:44 06/30/16. Ambulatory to room. GENERAL / NEURO / PSYCH: Oriented X 4. Alert. Appears in no acute distress. EXTREMITIES: Capillary refill is less than 2 seconds in the extremities. Extremity pulses are within normal limits. Limping gait. Neuro-vascular status intact to the extremity. Right ankle: tenderness. Right foot: tenderness and swelling. SKIN: Skin intact. Skin is warm and dry. --09:44 Julieta White R.N. NURSING PROGRESS NOTES Cold pack applied to the right ankle. Two patient identifiers checked. Call light placed in reach. Bed placed in lowest position. Brakes of bed on. Patient ready for evaluation- chart flagged and ED physician notified. --09:45 Julieta White R.N. ( portable xray done at the bedside.). --10:18 Shonda Sher R.N. 11:40. Stirrup air lower extremity splint applied to right ankle by tech. Distal pulses intact, sensation intact and motor within normal limits. Patient fit with new crutches. Crutch training performed by tech; the patient demonstrated proper use. --12:17 Holli Giron. DISPOSITION / DISCHARGE Departure time: 11:Jun 30 2016. Condition at departure: improved and stable. No learning barriers present. Reviewed crutch walking and splint care instructions. Patient verbalized understanding. Written instructions provided in Yakut. The patient was discharged by the physician. She was discharged home and accompanied by director of kids. She left the Emergency Department ambulatory and via private vehicle. Grain Manager driving. --12:59 Julieta White R.N. 12:57 06/30/16. BP: 122/68. HR: 100. RR: 16. O2 saturation: 100%. Temp: 98 F (oral). Pain level now: 06/16. --12:59 Julieta White R.N. Locked/Released at 06/30/2016 13:00 by Julieta White R.N.
--- NOTE | 2016-06-30 11:17 | ED NURSING NOTES ---
Clinical Report - Nurses [facility] [address] [place] [address] 06/30/2016 9:36 Patient: ROXANNE CANADA TRIAGE Acuity: LEVEL 3. Chief Complaint: INJURY TO RIGHT ANKLE. Alert. No acute distress. SEPSIS SCREEN: Sepsis Screen. Negative (no infection suspected/documented). TAURUS COMA SCORE: [place]itas Coma Scale: 15- eyes open spontaneously (4); best verbal response- oriented x 4 (5); best motor response- obeys commands (6). --09:44 Julieta White R.N. 09:39 06/30/16. BP: 126/64. HR: 124. RR: 22. O2 saturation: 98%. Temp: 98.5 F. Pain level now: 07/16. --09:44 Julieta White R.N. Weight: 113.3 kg stated. Height/Length: 64 inches Per Patient. BMI: 42.9. --09:40 Julieta White R.N. Medications None. --09:42 Julieta White R.N. Medication/allergy information source: the patient. --09:44 Julieta White R.N. Allergies PredniSONE. --09:42 Julieta White R.N. History Arrived by private vehicle. Historian: patient. Accompanied by family. Primary physician (Yemi). This occurred just prior to arrival. Occurred at home. Mechanism of injury: fell (pt reports she tripped going down stairs and twisted and fell on her ankle.). Treatment TRUCK MECHANIC: None. PAST MEDICAL HX: Last normal menstrual period- May 23 2016. SOCIAL HX: Current every day light tobacco smoker (cigarette)- less than 1/2 a pack per day. No alcohol use or drug use. FALL RISK ASSESSMENT: Fall risk assessment completed. No fall risk identified. NUTRITIONAL RISK ASSESSMENT: The nutritional risk assessment revealed no deficiencies. FUNCTIONAL ASSESSMENT: Functional assessment: no impairments noted. LEARNING NEEDS ASSESSMENT: The learning needs assessment revealed no barriers. SKIN INTEGRITY ASSESSMENT: Skin integrity risk assessment completed. No skin integrity risk identified. --09:44 Julieta White R.N. PROBLEMS: Appendicitis. Abscess. Asthma. . Hypertension. Myofascial Strain. LNMP - Last Normal Menstrual Period. --:42 Julieta White R.N. Gastroenteritis [RuleOut]. --09:42 Julieta White R.N. ADDITIONAL SURGERIES: Appendectomy. . --:42 Julieta White R.N. Assessment GENERAL / NEURO / PSYCH: Alert. Oriented X 4. Appears in no acute distress. Penitas Coma Scale: 15- eyes open spontaneously (4); best verbal response- oriented x 4 (5); best motor response- obeys commands (6). Patient appears calm and cooperative. RESPIRATORY: Respirations not labored. CVS: Capillary refill less than 2 seconds. GI / : Abdomen soft and nontender. SKIN: Mucous membranes are pink. Skin is warm and dry. --09:44 Julieta White R.N. Interventions ID band on patient. To treatment room. --09:44 Julieta White R.N. PHYSICAL ASSESSMENT 09:44 06/30/16. Ambulatory to room. GENERAL / NEURO / PSYCH: Oriented X 4. Alert. Appears in no acute distress. EXTREMITIES: Capillary refill is less than 2 seconds in the extremities. Extremity pulses are within normal limits. Limping gait. Neuro-vascular status intact to the extremity. Right ankle: tenderness. Right foot: tenderness and swelling. SKIN: Skin intact. Skin is warm and dry. --09:44 Julieta White R.N. NURSING PROGRESS NOTES Cold pack applied to the right ankle. Two patient identifiers checked. Call light placed in reach. Bed placed in lowest position. Brakes of bed on. Patient ready for evaluation- chart flagged and ED physician notified. --09:45 Julieta White R.N. ( portable xray done at the bedside.). --10:18 Shonda Sher R.N. 11:40. Stirrup air lower extremity splint applied to right ankle by tech. Distal pulses intact, sensation intact and motor within normal limits. Patient fit with new crutches. Crutch training performed by tech; the patient demonstrated proper use. --12:17 Holli Giron. DISPOSITION / DISCHARGE Departure time: 11:Jun 30 2016. Condition at departure: improved and stable. No learning barriers present. Reviewed crutch walking and splint care instructions. Patient verbalized understanding. Written instructions provided in Maori. The patient was discharged by the physician. She was discharged home and accompanied by ada accommodation consultant. She left the Emergency Department ambulatory and via private vehicle. Automobile Or Truck Rental Dispatcher driving. --12:59 Julieta White R.N. 12:57 06/30/16. BP: 122/68. HR: 100. RR: 16. O2 saturation: 100%. Temp: 98 F (oral). Pain level now: 06/16. --12:59 Julieta White R.N. Locked/Released at 06/30/2016 13:00 by Julieta White R.N.
--- NOTE | 2016-06-30 11:17 | ED ORDER SUMMARY ---
..... Patient: ROXANNE CANADA OrderSheet [facility] VisitID: [id number] [place] [address] 21y, F Registration Date/Time: 06/30/2016 ORDER SHEET Weight: 113.3 kg (stated) Allergies: PredniSONE GENERAL ORDERS: Ankle 3 or 4V Right Urgent (10:04 06/30/2016 Shoaib WU) (Ack 10:05 Addy) (10:19 SReitz R.N.) Splint (LE) (Right) (Sugar Tong) (Air Splint) (11:14 06/30/2016 Shoaib WU) (Ack 11:18 MWinterer R.N.) (11:22 Patrice) Crutches (11:15 06/30/2016 Shoaib WU) (Ack 11:18 Kimo R.N.) (11:22 Patrice) MEDICATION ORDERS: IV FLUIDS: ORDER SHEET NOTES: [Electronically signed by Julieta White R.N. (13:00 06/30/2016)] [Electronically signed by Joseph Ruiz MD (02:50 07/02/2016)] [Electronically locked/signed by Julieta White R.N. (13:06/30/2016)]
--- NOTE | 2016-06-30 11:17 | ED ORDER SUMMARY ---
..... Patient: ROXANNE CANADA OrderSheet [facility] VisitID: [id number] [place] [address] 21y, F Registration Date/Time: 06/30/2016 ORDER SHEET Weight: 113.3 kg (stated) Allergies: PredniSONE GENERAL ORDERS: Ankle 3 or 4V Right Urgent (10:04 06/30/2016 Shoaib WU) (Ack 10:05 Addy) (10:19 SReitz R.N.) Splint (LE) (Right) (Sugar Tong) (Air Splint) (11:14 06/30/2016 Shoaib WU) (Ack 11:18 MWinterer R.N.) (11:22 Patrice) Crutches (11:15 06/30/2016 Shoaib WU) (Ack 11:18 Kimo R.N.) (11:22 Patrice) MEDICATION ORDERS: IV FLUIDS: ORDER SHEET NOTES: [Electronically signed by Julieta White R.N. (13:00 06/30/2016)] [Electronically signed by Joseph Ruiz MD (02:50 07/02/2016)] [Electronically locked/signed by Julieta White R.N. (13:06/30/2016)]
--- NOTE | 2016-06-30 11:17 | ED CLINICAL REPORT ---
Clinical Report - Physicians/Mid Levels [facility] [address] [place] [address] 06/30/2016 9:36 [id number] Time Seen: 10:03. Arrived- By private vehicle. Historian- patient. HISTORY OF PRESENT ILLNESS Chief Complaint: Injury to the right ankle. The injury happened just prior to arrival. The patient sustained an inversion injury while walking. Occurred at home. Patient is experiencing severe pain. No other injury. REVIEW OF SYSTEMS The patient complains of severe pain on weight bearing. She cannot bear weight. She has had new onset of swelling of the right ankle (mild). No chills, fever, sweats, calf pain or chest pain. No cough, difficulty breathing, pedal edema, palpitations or abdominal pain. No constipation, diarrhea, nausea, vomiting or urinary problems. All systems otherwise negative, except as recorded above. PAST HISTORY PCP - Yemi. SOCIAL HISTORY Current every day light tobacco smoker (cigarette)- less than 1/2 a pack per day. No alcohol use or drug use. FAMILY HISTORY No significant family medical history. ADDITIONAL NOTES The nursing notes have been reviewed. PHYSICAL EXAM Vital Signs: 06/30/2016 09:39 BP: 126/64. HR: 124. RR: 22. O2 saturation: 98%. Temp: 98.5 F. Pain level now: 5/10. Have been reviewed. Appearance: Alert. Head: Head atraumatic. Eyes: Pupils equal, round and reactive to light. ENT: Pharynx normal. Neck: Neck supple. Respiratory: Breath sounds normal. Abdomen: No visible injury. Back: Normal inspection. ROM normal. Skin: Skin intact. Skin warm and dry. Extremities: Right lateral ankle: moderate tenderness and mild swelling. Limited ROM secondary to pain (diminished dorsiflexion and eversion). Neurovascular intact distally. No ligamentous laxity present. No joint effusion. Extremities otherwise negative. Neuro, Vascular and Tendons: Sensation intact. Motor intact. Gait: Gait not tested due to pain. Neuro: No motor deficit. No sensory deficit. LABS, X-RAYS, AND EKG Rt Ankle X-ray: (IMPRESSION: 1. Normal right ankle.). The X-rays were interpreted by the radiologist and contemporaneously by me. PROGRESS AND PROCEDURES Splint Application: Stirrup velcro splint applied to right ankle. Splint applied by tech. Reassessed extremity following splint application. Neurovascular intact. Fitted for crutches by the tech. Patient/family counseled. Old medical records reviewed. Disposition: Discharged. Condition: stable. CLINICAL IMPRESSION Sprain of the calcaneofibular and talofibular ligament of the right ankle. INSTRUCTIONS Apply ice for 20 minutes four times a day until better. Don't apply ice directly to skin and don't use while asleep. Use crutches until released. Wear air splint until better. You may walk and bear weight as tolerated. Do not work today, tomorrow. Warnings: COMPLICATIONS: Complications from this condition include: possible injury to a tendon and possible injury to a ligament. Future problems may include loss of function and pain. It is important to follow up with a physician for further evaluation and treatment. GENERAL WARNINGS: Return or contact your physician immediately if your condition worsens or changes unexpectedly, if not improving as expected, or if other problems arise. Prescription Medications: Ibuprofen 600mg tablets: take 1 tablet orally every 8 hours as needed for pain. Dispense thirty (30). No refills. Understanding of the discharge instructions verbalized by patient and family. (Electronically signed by Joseph Ruiz MD 07/02/2016 2:50)
--- NOTE | 2016-07-02 02:51 | ED MED RECONCILIATION SUMMARY ---
Patient: ROXANNE CANADA Medication Reconciliation Report [facility] VisitID: [id number] [address] [place] [address] 21y, F Registration Date/Time: 06/30/2016 Weight: 113.3 kg Height/Length: 64 in. BMI: 42.9 ALLERGIES: PredniSONE The patient's Home Medications are listed below: NONE. The source(s) of the original Home Medication information: patient The following Medications were given to the patient in the Emergency Department: None. The following Medications were prescribed to the patient: Ibuprofen 600mg tablets: take 1 tablet orally every 8 hours as needed for pain. Dispense thirty (30). No refills. -- Joseph Ruiz MD
--- NOTE | 2016-07-02 02:51 | ED MAR SUMMARY ---
..... Medication Administration Record [facility] [address] [place], [place] [id number] Patient: ROXANNE CANADA Visit ID: [id number] 21y, F Weight: 113.3 kg Height/Length: 64 in BMI: 42.9 ALLERGIES: PredniSONE
--- NOTE | 2016-07-02 02:51 | ED DISCHARGE INSTRUCTIONS ---
Patient: ROXANNE CANADA General Instructions [facility] VisitID: [id number] [place] [address] 21y, F Registration Date/Time: 06/30/2016 Sprain of the calcaneofibular and talofibular ligament of the right ankle. INSTRUCTIONS Apply ice for 20 minutes four times a day until better. Don't apply ice directly to skin and don't use while asleep. Use crutches until released. Wear air splint until better. You may walk and bear weight as tolerated. Do not work today, tomorrow. Warnings: COMPLICATIONS: Complications from this condition include: possible injury to a tendon and possible injury to a ligament. Future problems may include loss of function and pain. It is important to follow up with a physician for further evaluation and treatment. GENERAL WARNINGS: Return or contact your physician immediately if your condition worsens or changes unexpectedly, if not improving as expected, or if other problems arise. Prescription Medications: Ibuprofen 600mg tablets: take 1 tablet orally every 8 hours as needed for pain. Dispense thirty (30). No refills. Understanding of the discharge instructions verbalized by patient and family. ADDITIONAL INFORMATION Sprain, Ankle,With X-Ray A sprain is an injury to the ligaments or capsule that holds a joint together. There are no broken bones. Most sprains take from four to six weeks to heal. If the ligament is completely torn (severe sprain), it can take several months to recover. Mild to moderate sprains may be treated with an elastic wrap or an in-shoe splint to provide support and prevent re-injury. A mild sprain may not require any additional support. A severe sprain may require surgery to repair. Home care The following guidelines will help you care for your injury at home: Stay off the injured leg as much as possible until you can walk on it without pain. If you have a lot of pain with walking, crutches or a walker may be prescribed. (These can be rented or purchased at many pharmacies and surgical or orthopedic supply stores). Follow your doctor's advice regarding when to begin bearing weight on that leg. Keep your leg elevated to reduce pain and swelling. When sleeping, place a pillow under the injured leg. When sitting, support the injured leg so it is level with your waist. This is very important during the first 48 hours. Apply an ice pack (ice cubes in a plastic bag, wrapped in a towel) over the injured area for 20 minutes every 12 hours the first day. You can place the ice pack directly over the splint/cast. If you were given a boot, open it to apply the ice pack. Continue with ice packs 34 times a day for the next two days, then as needed for the relief of pain and swelling. You may use acetaminophen or ibuprofen to control pain, unless another pain medicine was prescribed. If you have chronic liver or kidney disease or ever had a stomach ulcer or GI bleeding, talk with your doctor before using these medicines. You may return to sports after healing, when you can run without pain. A sprained ankle is at risk for re-injury during the first six weeks. During that time, protect your ankle with an in-shoe splint that prevents tilting of your ankle from side to side. This is very important if you do active work or play sports during that time. Follow-up care Any X-rays you had today dont show any broken bones, breaks, or fractures. Sometimes fractures dont show up on the first X-ray. Bruises and sprains can sometimes hurt as much as a fracture. These injuries can take time to heal completely. If your symptoms dont improve or they get worse, talk with your doctor. You may need a repeat X-ray. When to seek medical care Get prompt medical attention if any of the following occur: The plaster cast or splint gets wet or soft The fiberglass cast or splint gets wet and does not dry for 24 hours Pain or swelling increases, or redness appears Toes become cold, blue, numb or tingly Re-injure your ankle Crutch Walking Crutch Adjustment Make sure the crutches you use are adjusted to fit you. When you stand, there should be room to fit 2-3 fingers between the top of the crutch and your armpit. 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 Crutch Walking: Place the crutches forward 12" in front of and 6" to the side of your feet. Lean your weight forward as you push down on the handgrips. Your weight should be on your hands and yourstrong leg, not your armpits . Let your body swing through, landing on the strong leg. Advance the crutches forward again. The crutch and the injured leg should move together. Going Up Steps: ("Up with the good") With both crutches on the same step as your feet, push down on the handgrips. Balancing with very light pressure on the weak leg, let your hands support your weight as you raise your strong leg onto the next higher step. Transfer all your weight to your strong leg (still bent) as you move the crutches up to the next step alongside the strong leg. With your weight evenly balanced on the two crutches and your strong leg, straighten your strong knee as you raise the weak leg up to the next step. Going Down Steps: ("Down with the bad") With both crutches on the same step as your feet, push down on the handgrips. With your weight evenly balanced on the two crutches and your strong leg, bend your strong knee as you lower the weak leg down to the next step. Let your strong leg support you (still bent) as you move the crutches down alongside the weak leg. Transfer your weight to your hands, balancing with very light pressure on the weak leg as you lower your strong leg alongside your weak leg. Aircast Traditional splints and casts for the foot and ankle protect the injury by preventing movement at the joints. However, many injuries heal better and faster if the injured joint can be moved, while protected at the same time. This is the reason for using an Aircast. There are two common type of AirCasts: 1) Air-Stirrup ankle splint This is often used to treat ankle sprains. It contains padded air cells in a plastic frame that fits into your shoe. This allows you to walk while preventing the ankle joint from rolling in or out causing re-injury. Ankle sprains can take 4-6 weeks to heal. Persons with severe injuries or over age 60 may require more time to heal. During that time, you are prone to re-injury by suddenly twisting your ankle again while the ligaments are still weak. When treating a sprain, the Air-Stirrup splint should be worn whenever walking for at least four weeks, or as long as you continue to have ankle pain. You should continue to wear it at least 6 weeks whenever running, playing sports or any activity where there is increased risk of re-injury. Talk to your doctor for specific advice about the treatment of your condition. 2) SP-Walker boot This is a short boot that provides support and protection to the foot and ankle while allowing you to walk. It contains padded air cells that provide compression and help circulation. It is used for both foot and ankle injuries - both sprains and minor fractures. Talk to your doctor for specific advice about the treatment of your condition. Air-Stirrup and SP-Walker are trademarks of [employer]. For more information about their products, see www.amprice. Ibuprofen Oral tablet What is this medicine? IBUPROFEN (eye BYOO proe fen) is a non-steroidal anti-inflammatory drug (NSAID). It is used for dental pain, fever, headaches or migraines, osteoarthritis, rheumatoid arthritis, or painful monthly periods. It can also relieve minor aches and pains caused by a cold, flu, or sore throat. How should I use this medicine? Take this medicine by mouth with a glass of water. Follow the directions on the prescription label. Take this medicine with food if your stomach gets upset. Try to not lie down for at least 10 minutes after you take the medicine. Take your medicine at regular intervals. Do not take your medicine more often than directed. A special MedGuide will be given to you by the pharmacist with each prescription and refill. Be sure to read this information carefully each time. Talk to your compensation analyst regarding the use of this medicine in children. Special care may be needed. What side effects may I notice from receiving this medicine? Side effects that you should report to your doctor or health healthcare applications analyst as soon as possible: allergic reactions like skin rash, itching or hives, swelling of the face, lips, or tongue black or bloody stools, blood in the urine or in vomit breathing problems changes in vision chest pain general ill feeling or flu-like symptoms nausea or vomiting redness, blistering, peeling or loosening of the skin, including inside the mouth slurred speech or weakness on one side of the body stomach pain unexplained weight gain or swelling unusually weak or tired yellowing of eyes or skin Side effects that usually do not require medical attention (report to your doctor or health healthcare applications analyst if they continue or are bothersome): constipation or diarrhea dizziness gas or heartburn stomach upset What may interact with this medicine? Do not take this medicine with any of the following medications: cidofovir ketorolac methotrexate pemetrexed This medicine may also interact with the following medications: alcohol aspirin diuretics lithium other drugs for inflammation like prednisone warfarin What if I miss a dose? If you miss a dose, take it as soon as you can. If it is almost time for your next dose, take only that dose. Do not take double or extra doses. Where should I keep my medicine? Keep out of the reach of children. Store at room temperature between 15 and 30 degrees C (59 and 86 degrees F). Keep container tightly closed. Throw away any unused medicine after the expiration date. What should I tell my health care provider before I take this medicine? They need to know if you have any of these conditions: asthma cigarette smoker drink more than 3 alcohol containing drinks a day heart disease or circulation problems such as heart failure or leg edema (fluid retention) high blood pressure kidney disease liver disease stomach bleeding or ulcers an unusual or allergic reaction to ibuprofen, aspirin, other NSAIDS, other medicines, foods, dyes, or preservatives or trying to get breast-feeding What should I watch for while using this medicine? Tell your doctor or healthcare professional if your symptoms do not start to get better or if they get worse. This medicine does not prevent heart attack or stroke. In fact, this medicine may increase the chance of a heart attack or stroke. The chance may increase with longer use of this medicine and in people who have heart disease. If you take aspirin to prevent heart attack or stroke, talk with your doctor or health healthcare applications analyst. Do not take other medicines that contain aspirin, ibuprofen, or naproxen with this medicine. Side effects such as stomach upset, nausea, or ulcers may be more likely to occur. Many medicines available without a prescription should not be taken with this medicine. This medicine can cause ulcers and bleeding in the stomach and intestines at any time during treatment. Ulcers and bleeding can happen without warning symptoms and can cause . To reduce your risk, do not smoke cigarettes or drink alcohol while you are taking this medicine. You may get drowsy or dizzy. Do not drive, use machinery, or do anything that needs mental alertness until you know how this medicine affects you. Do not stand or sit up quickly, especially if you are an older patient. This reduces the risk of dizzy or fainting spells. This medicine can cause you to bleed more easily. Try to avoid damage to your teeth and gums when you brush or floss your teeth. You have been given the following additional information: Sprain, Ankle, With X-Ray Crutch Walking Aircast Splint And Boot Ibuprofen Oral tablet You may walk and bear weight as tolerated. Do not work today, tomorrow. (Electronically signed by Joseph Ruiz MD 07/02/2016 2:50)
--- NOTE | 2016-07-02 02:51 | ED MED RECONCILIATION SUMMARY ---
Patient: ROXANNE CANADA Medication Reconciliation Report [facility] VisitID: [id number] [address] [place] [address] 21y, F Registration Date/Time: 06/30/2016 Weight: 113.3 kg Height/Length: 64 in. BMI: 42.9 ALLERGIES: PredniSONE The patient's Home Medications are listed below: NONE. The source(s) of the original Home Medication information: patient The following Medications were given to the patient in the Emergency Department: None. The following Medications were prescribed to the patient: Ibuprofen 600mg tablets: take 1 tablet orally every 8 hours as needed for pain. Dispense thirty (30). No refills. -- Joseph Ruiz MD
--- NOTE | 2016-07-02 02:51 | ED MAR SUMMARY ---
..... Medication Administration Record [facility] [address] [place], [place] [id number] Patient: ROXANNE CANADA Visit ID: [id number] 21y, F Weight: 113.3 kg Height/Length: 64 in BMI: 42.9 ALLERGIES: PredniSONE
== END 2016-06-30 11:20 | disposition home or self-care (01) ==
LOC: ED SRH 09:35
DX: S93.411A Sprain of calcaneofibular ligament of right ankle, initial encounter (principal); S93.491A Sprain of other ligament of right ankle, initial encounter; W10.9XXA Fall (on) (from) unspecified stairs and steps, initial encounter; Y93.01 Activity, walking, marching and hiking; Y99.8 Other external cause status; Y92.009 Unspecified place in unspecified non-institutional (private) residence as the place of occurrence of the external cause; F17.210 Nicotine dependence, cigarettes, uncomplicated; I10 Essential (primary) hypertension; Z88.8 Allergy status to other drugs, medicaments and biological substances